=== PATIENT | female | born 1980 | race Caucasian/White ===

== ENCOUNTER 2016-07-31 21:21 | Emergency (ER) | payer SELFPAY ==
[~2016-07-31] VITALS: Ht 162.6 cm; Wt 138.8 kg
[2016-07-31 21:44] VITALS: BP 140/71
[2016-07-31 22:23] LABS: OBC FLU VALID
[2016-07-31] MEDS ORDERED: PRED20TA PO (22:38)
--- NOTE | 2016-07-31 22:38 | PHYS DOC ---
Past Medical History Past Medical History: Anxiety, Bipolar Past Surgical History: , Tonsillectomy, Tubal ligation Additional Past Surgical Histo: D&C Alcohol Use: Rarely Drug Use: None Adult General Chief Complaint Chief Complaint: FLU SYMPTOM HPI HPI Patient is a 35 year old female presents emergency department stating that she' s had a 3 day history of cough congestion and sinus pressure with fevers on and off. Patient states that she did not receive the flu a vaccination this year. She denies any nausea vomiting she denies the cough being productive. She states that she's been taken NyQuil and DayQuil [id number] relief. Review of Systems Review of Systems Constitutional: fever Eyes: Denies change in visual acuity, redness, or eye pain [] HENT: nasal congestion denies sore throat [] Respiratory: cough and shortness of breath [] Cardiovascular: No additional information not addressed in HPI [] GI: Denies abdominal pain, nausea, vomiting, bloody stools or diarrhea [] : Denies dysuria or hematuria [] Musculoskeletal: Denies back pain or joint pain [] Integument: Denies rash or skin lesions [] Neurologic: Denies headache, focal weakness or sensory changes [] Allergies Allergies Allergies Coded Allergies Type Severity Reaction Last Updated Verified Latex, Natural Rubber Allergy Severe "swelling, itching" 03/30/14 No Penicillins Allergy Severe "breathing problems" 03/30/14 No honey Allergy Severe "swelling, itching" 03/30/14 No Sulfa (Sulfonamide Antibiotics) Allergy Intermediate "itch real bad" 03/30/14 No Physical Exam Physical Exam Constitutional: Well developed, well nourished, no acute distress, non-toxic appearance. [] HENT: Normocephalic, atraumatic, bilateral external ears normal, oropharynx moist, no oral exudates, nose normal. Bilateral tympanic membranes appear to be normal. Throat with erythematous no exudate noted. No uvula deviation noted. No cervical adenopathy noted. Eyes: PERRLA, EOMI, conjunctiva normal, no discharge. [] Neck: Normal range of motion, no tenderness, supple, no stridor. [] Cardiovascular:Heart rate regular rhythm, no murmur [] Lungs & Thorax: Bilateral breath sounds clear to auscultation [] Skin: Warm, dry, no erythema, no rash. [] Back: No tenderness Extremities: No tenderness, no cyanosis, no clubbing, ROM intact, no edema. [] Neurologic: Alert and oriented X 3, normal motor function, normal sensory function, no focal deficits noted. [] Psychologic: Affect normal, judgement normal, mood normal. [] Current Patient Data Vital Signs Vital Signs Date Time Temp Pulse Resp B/P Pulse Ox O2 Delivery O2 Flow Rate FiO2 07/31/16 21:44 97.9 85 16 96 Room Air 97.9 Lab Values Laboratory Tests Test 07/31/16 21:55 Influenza Type A Antigen Negative (NEGATIVE) Influenza Type B Antigen Positive (NEGATIVE) EKG EKG [] Radiology/Procedures Radiology/Procedures [] Course & Med Decision Making Course & Med Decision Making Pertinent Labs and Imaging studies reviewed. (See chart for details) Influenza B+. Patient is out of the timeframe for Tamiflu as she's been having symptoms for over 3 days. Patient was encouraged to use Sudafed over-the- counter as well as Mucinex DM. Tylenol and ibuprofen for fever chills generalized body aches and discomfort. Also recommended plenty of fluids such as water or cranberry juice or propel. Patient will be discharged home in stable condition signs and symptoms to return back to emergency department as been provided. Patient will also be provided with steroids to help open up the airways and help her feel like she is breathing better. [] Dragon Disclaimer Dragon Disclaimer This electronic medical record was generated, in whole or in part, using a voice recognition dictation system. Departure Departure Impression: Primary Impression: Influenza B Disposition: 01 HOME, SELF-CARE Condition: STABLE Referrals: PONCHO RAWLS APRN (PCP) Patient Instructions: Influenza, Adult, [id number] Additional Instructions: Home to rest. Medications as prescribed. Sudafed [id number] instructed by purchasing specialist. Mucinex DM instructed by purchasing specialist. Drink plenty of fluids such as water, propel or Gatorade. Tylenol or ibuprofen for fever chills or generalized body aches and discomfort. Follow-up to primary care physician next 7-10 days. Return back to emergency department for signs and symptoms of become worse. Scripts Prednisone 20 Mg [id number] Mg PO DAILY #12 TAB Prov:SUSAN ROSENBAUM APRN 07/31/16 SUSAN ROSENBAUM APRN Jul 31, 2016 22:38
== END 2016-07-31 22:50 | disposition home or self-care (01) ==
LOC: ER 21:21
DX: J10.1 Influenza due to other identified influenza virus with other respiratory manifestations (principal); F31.9 Bipolar disorder, unspecified; F41.9 Anxiety disorder, unspecified; Z88.0 Allergy status to penicillin; Z91.040 Latex allergy status; Z88.2 Allergy status to sulfonamides; Z91.018 Allergy to other foods
CPT/HCPCS: 87804; 99284

== ENCOUNTER → 2017-05-14 | Outpatient (CLI) | payer OTHER ==
[2017-05-14 12:42] LABS: ADD MAN DIFF? NO
[2017-05-14 12:45] LABS: BASO # 0.1 x10^3/uL (0.0-0.2); BASO % 1 % (0-3); EOS # 0.3 x10^3/uL (0.0-0.7); EOS % 3 % (0-3); HEMOGLOBIN 12.7 g/dL (12.0-15.5); LYMPH # 3.4 x10^3/uL (1.0-4.8); LYMPH % 32 % (24-48); MEAN CORPUSCULAR HEMOGLOBIN 26 pg (25-35); MEAN CORPUSCULAR HGB CONC 33 g/dL (31-37); MEAN CORPUSCULAR VOLUME 81 fL (79-100); MONO # 0.7 x10^3/uL (0.0-1.1); MONO % 6 % (0-9); NEUT # 6.3 x10^3uL (1.8-7.7); NEUT % 58 % (31-73); PLATELET COUNT 398 x10^3/uL (140-400); RED BLOOD COUNT 4.82 x10^6/uL (3.50-5.40); RED CELL DISTRIBUTION WIDTH 15.1 % (11.5-14.5); WHITE BLOOD COUNT 10.8 x10^3/uL (4.0-11.0)
[2017-05-14 12:59] LABS: ALBUMIN 3.9 g/dL (3.4-5.0); ALBUMIN/GLOBULIN RATIO 0.9 (1.0-1.7); ALK PHOS 66 U/L (46-116); ALT (SGPT) 23 U/L (14-59); ANION GAP 12 (6-14); AST (SGOT) 16 U/L (15-37); BLOOD UREA NITROGEN 15 mg/dL (7-20); BUN/CREATININE RATIO 25 (6-20); CALCIUM 8.8 mg/dL (8.5-10.1); CARBON DIOXIDE 23 mmol/L (21-32); CHLORIDE 102 mmol/L (98-107); CREATININE 0.6 mg/dL (0.6-1.0); GFR 111.9; GLUCOSE 97 mg/dL (70-99); POTASSIUM 3.9 mmol/L (3.5-5.1); SODIUM 137 mmol/L (136-145); TOTAL BILIRUBIN 0.2 mg/dL (0.2-1.0); TOTAL PROTEIN 8.2 g/dL (6.4-8.2)
== END | disposition home or self-care (01) ==
LOC: SURGPAT 12:13
DX: Z01.818 Encounter for other preprocedural examination (principal); Z90.710 Acquired absence of both cervix and uterus
CPT/HCPCS: 36415; 71046; 80053; 85025

== ENCOUNTER 2017-05-26 05:39 | Inpatient (IN) | payer OTHER ==
[2017-05-26] MEDS: IV RINGERS,LACTATED 1000ML 1,000 ML IV (06:40)
[2017-05-26] MEDS ORDERED: MORPHINE SULFATE 2 MG/ML DISP.SYRIN. IV (07:00)
[2017-05-26] MEDS ORDERED: fentaNYL PF VIAL 100 MCG/2 ML VIAL IV (07:00)
[2017-05-26] MEDS ORDERED: ONDANSETRON PF 4 MG/2 ML VIAL. IV ×2 (07:00→10:00)
[2017-05-26] MEDS ORDERED: HYDROmorphone 2 MG/ML VIAL IV (07:00)
[2017-05-26] MEDS ORDERED: LIDOCAINE 1% PF 2 ML VIAL. ID (07:00)
[2017-05-26] MEDS ORDERED: BUPIVACAINE-EPI 0.25%-1:200000 50 ML VIAL. (07:02)
[2017-05-26 07:14] LABS: NEG OBC UR NEG; POS OBC UR POS; U PREG PATIENT NEGATIVE (NEG)
[2017-05-26] MEDS ORDERED: LIDOCAINE 1% PF 5 ML VIAL. (07:18)
[2017-05-26] MEDS ORDERED: PROPOFOL 20 ML IV (07:19)
[2017-05-26] MEDS ORDERED: MIDAZOLAM HCL/PF 2 MG/2 ML VIAL. (07:19)
[2017-05-26] MEDS ORDERED: DEXAMETHASONE SOD PHOS 20 MG/5 ML VIAL. ×2 (07:19→07:20)
[2017-05-26] MEDS ORDERED: ROCURONIUM 100 MG/10 ML VIAL. (07:19)
[2017-05-26] MEDS ORDERED: fentaNYL PF VIAL 250 MCG/5 ML VIAL (07:19)
[2017-05-26] MEDS: CLINDAMYCIN 900MG PREMIX 50 ML IV (07:49)
[2017-05-26] MEDS ORDERED: SEVOFLURANE 61 TO 120 MINUTES. IH (09:05)
[2017-05-26] MEDS ORDERED: GLYCOPYRROLATE 1 MG/5 ML VIAL. (09:06)
[2017-05-26] MEDS ORDERED: NEOSTIGMINE METHYLSULFATE 5 MG/5 ML SYRINGE. (09:06)
[2017-05-26] MEDS ORDERED: MORPHINE SULFATE 10 MG/ML VIAL. (09:52)
[2017-05-26] MEDS ORDERED: HYDROcodone/APAP 5/325MG 1 TAB TABLET PO (10:00)
[2017-05-26] MEDS ORDERED: 0.9 % SODIUM CHLORIDE 10 ML DISP.SYRIN. IV (10:00)
[2017-05-26] MEDS ORDERED: NALOXONE 0.4 MG/ML VIAL. IV (10:00)
[2017-05-26] MEDS ORDERED: MAG HYDROX/ALUMINUM HYD/SIMETH 30 ML ORAL.SUSP PO (10:00)
[2017-05-26] MEDS ORDERED: oxyCODONE/APAP 5/325 1 TAB TABLET PO (10:00)
[2017-05-26] MEDS ORDERED: LACTULOSE 20 GM/30 ML SOLUTION. PO (10:00)
[2017-05-26] MEDS ORDERED: ZOLPIDEM 5 MG TABLET. PO (10:00)
[2017-05-26] MEDS ORDERED: diphenhydrAMINE 50 MG/ML VIAL IV (10:00)
[2017-05-26] MEDS ORDERED: diphenhydrAMINE HCL 25 MG CAPSULE PO (10:00)
[2017-05-26] MEDS: fentaNYL PF VIAL 100 MCG/2 ML VIAL IV ×2 (10:34→11:04)
[2017-05-26] MEDS: PROCHLORPERAZINE 10 MG/2 ML VIAL. IV (10:35)
[2017-05-26] MEDS: KETOROLAC 30 MG/ML INJ. IV ×2 (12:55→19:28)
[2017-05-26] MEDS: MORPHINE SULFATE 2 MG/ML DISP.SYRIN. IV ×2 (16:33→18:04)
[2017-05-26] MEDS: CALCIUM CARBONATE 500 MG TAB.CHEW PO (18:05)
[2017-05-26] MEDS: HYDROcodone/APAP 5/325MG 1 TAB TABLET PO (23:13)
[2017-05-27] MEDS: KETOROLAC 30 MG/ML INJ. IV (01:44)
[2017-05-27 05:01] LABS: HEMATOCRIT 33.9 % (36.0-47.0)
[2017-05-27] MEDS: oxyCODONE/APAP 5/325 1 TAB TABLET PO ×3 (05:55→15:29)
[2017-05-27 07:17] LABS: ANION GAP 9 (6-14); BLOOD UREA NITROGEN 9 mg/dL (7-20); CALCIUM 8.3 mg/dL (8.5-10.1); CARBON DIOXIDE 25 mmol/L (21-32); CHLORIDE 103 mmol/L (98-107); CREATININE 0.6 mg/dL (0.6-1.0); GFR 111.9; GLUCOSE 125 mg/dL (70-99); POTASSIUM 4.4 mmol/L (3.5-5.1); SODIUM 137 mmol/L (136-145)
[2017-05-27] MEDS: SIMETHICONE 80 MG TAB.CHEW PO (15:28)
[2017-05-27] MEDS: MAGNESIUM HYDROXIDE 2,400 MG/30 ML ORAL.SUSP. PO (15:28)
[2017-05-27] MEDS: HYDROcodone/APAP 5/325MG 1 TAB TABLET PO (19:44)
[2017-05-27] MEDS ORDERED: BISACODYL 10 MG SUPP.RECT. PR (19:45)
[2017-05-27] MEDS: SENNOSIDES/DOCUSATE 8.6/50MG TABLET. PO (19:45)
[2017-05-27] MEDS: IBUPROFEN 600 MG TABLET. PO (22:03)
[2017-05-28] MEDS: IBUPROFEN 600 MG TABLET. PO ×2 (03:42→11:15)
[2017-05-28] MEDS: SENNOSIDES/DOCUSATE 8.6/50MG TABLET. PO (07:53)
[2017-05-28] MEDS: HYDROcodone/APAP 5/325MG 1 TAB TABLET PO (07:53)
== END 2017-05-28 14:00 | disposition home or self-care (01) | DRG 743 ==
LOC: OPSVCIP 05:39 → 3 NORTH 10:05
PROC: 0UT20ZZ Resection of Bilateral Ovaries, Open Approach (ICD-10-PCS; principal; 2017-05-26 07:30)
PROC: 0UT70ZZ Resection of Bilateral Fallopian Tubes, Open Approach (ICD-10-PCS; 2017-05-26 07:30)
PROC: 0UT90ZZ Resection of Uterus, Open Approach (ICD-10-PCS; 2017-05-26 07:30)
DX: D25.9 Leiomyoma of uterus, unspecified (principal); F17.210 Nicotine dependence, cigarettes, uncomplicated; F31.9 Bipolar disorder, unspecified; N92.0 Excessive and frequent menstruation with regular cycle; Z98.51 Tubal ligation status; Z88.0 Allergy status to penicillin; Z88.2 Allergy status to sulfonamides; Z88.8 Allergy status to other drugs, medicaments and biological substances; Z91.040 Latex allergy status; Z83.3 Family history of diabetes mellitus; Z82.49 Family history of ischemic heart disease and other diseases of the circulatory system; Z80.9 Family history of malignant neoplasm, unspecified
CPT/HCPCS: 36415; 80048; 81025; 85014; 86850; 86900; 86901; 88307; G0378; G0379; J0780; J1100; J1885; J1956; J2250; J2270; J2704; J2710; J3010; J3490; J7120

== ENCOUNTER 2017-06-10 22:41 | Emergency (ER) | payer OTHER | END 2017-06-10 23:35 | disposition home or self-care (01) | LOC: ER 22:41 | DX: T81.31XA Disruption of external operation (surgical) wound, not elsewhere classified, initial encounter (principal); Z90.710 Acquired absence of both cervix and uterus; Z98.51 Tubal ligation status; F17.200 Nicotine dependence, unspecified, uncomplicated; Z88.0 Allergy status to penicillin; Z88.2 Allergy status to sulfonamides; Z91.018 Allergy to other foods | CPT/HCPCS: 99281 ==

== ENCOUNTER 2017-07-09 | Emergency (ER) | payer OTHER | END 2017-07-09 00:45 | disposition home or self-care (01) | LOC: ER | DX: N99.842 Postprocedural seroma of a genitourinary system organ or structure following a genitourinary system procedure (principal); Z90.710 Acquired absence of both cervix and uterus; Z91.040 Latex allergy status; Z88.2 Allergy status to sulfonamides; Z91.048 Other nonmedicinal substance allergy status; Z88.0 Allergy status to penicillin | CPT/HCPCS: 99281 ==

== ENCOUNTER → 2017-07-22 | Outpatient (CLI) | payer OTHER | END | disposition home or self-care (01) | LOC: KCIC US 10:07 | DX: T81.89XD Other complications of procedures, not elsewhere classified, subsequent encounter (principal); R60.0 Localized edema | CPT/HCPCS: 76857 ==

== ENCOUNTER 2017-10-30 18:32 | Emergency (ER) | payer OTHER ==
[2017-10-30 19:54] LABS: ANION GAP 10 (6-14); BLOOD UREA NITROGEN 10 mg/dL (7-20); CARBON DIOXIDE 26 mmol/L (21-32); CHLORIDE 104 mmol/L (98-107); CREATININE 0.7 mg/dL (0.6-1.0); GFR 93.6; GLUCOSE 141 mg/dL (70-99); POTASSIUM 4.1 mmol/L (3.5-5.1); SODIUM 140 mmol/L (136-145)
[2017-10-30 20:03] LABS: TROPONINI < 0.017 ng/mL (0.000-0.055)
== END 2017-10-30 20:45 | disposition home or self-care (01) ==
LOC: ER 18:32
DX: R07.2 Precordial pain (principal); R06.02 Shortness of breath; F31.9 Bipolar disorder, unspecified; F41.9 Anxiety disorder, unspecified; Z88.0 Allergy status to penicillin; Z88.2 Allergy status to sulfonamides; Z91.040 Latex allergy status; Z91.018 Allergy to other foods
CPT/HCPCS: 36415; 71046; 80048; 84484; 93005; 99285-25

== ENCOUNTER → 2018-12-20 | Outpatient (CLI) | payer OTHER ==
[2017-10-30 20:44] VITALS: BP 129/76
[~2018-12-20] MED LIST: ACET325T9 PO; HYDR-2765 PO; IBUP-1007 PO; PRED20TA PO; RANI150C PO
--- NOTE | 2018-12-20 11:44 | KCIC ---
Indication: Sprain of left wrist. TECHNIQUE: 3 views of the left wrist and 3 views of the left hand COMPARISON: None FINDINGS: Wrist: No acute fracture or dislocation. Hand: No acute fracture or dislocation. IMPRESSION: As above. Electronically signed by: Juan Antonio Vallecillo DO (12/20/2018 11:41 AM) [facility]
--- NOTE | 2018-12-20 11:44 | KCIC ---
Indication: Sprain of left wrist. TECHNIQUE: 3 views of the left wrist and 3 views of the left hand COMPARISON: None FINDINGS: Wrist: No acute fracture or dislocation. Hand: No acute fracture or dislocation. IMPRESSION: As above. Electronically signed by: Juan Antonio Vallecillo DO (12/20/2018 11:41 AM) [facility]
== END | disposition home or self-care (01) ==
LOC: KCIC 09:40
PROVIDERS: ATTEND Family Medicine
DX: S63.502D Unspecified sprain of left wrist, subsequent encounter (principal); X58.XXXD Exposure to other specified factors, subsequent encounter
CPT/HCPCS: 73110; 73130

== ENCOUNTER → 2018-12-22 | Outpatient (CLI) | payer OTHER ==
[2017-10-30 20:44] VITALS: BP 129/76
--- NOTE | 2018-12-22 14:33 | KCIC ---
STUDY: MRI of the left wrist without contrast INDICATION: Left wrist pain after a fall. COMPARISON: Left wrist radiographs 12/20/2018 TECHNIQUE: Multiplanar MR imaging of the left wrist performed without the use of intravenous or intra-articular contrast. FINDINGS: Bones/cartilage: No acute fracture or findings of marrow contusion. No advanced degenerative changes. No focal chondral defect. Ligaments: The scapholunate and lunotriquetral ligaments are intact. No findings of complete or high-grade disruption of the additional intrinsic or extrinsic wrist ligaments though there appears to be some mild sprain of the dorsal extrinsic ligaments at the level of the mid carpal articulation, image 7 series 7. Musculotendinous: The flexor tendons are unremarkable without tenosynovitis. The extensor tendons are intact and without tenosynovitis. Mild subluxation of the extensor carpi ulnaris tendon along the distal ulnar groove with the tendon seen to course along the ulnar styloid on image 22 series 4. No findings to suggest acute injury of the ECU subsheath. No abnormal muscular signal or atrophy. TFCC: Intact. Miscellaneous: Very small ganglion cyst formation adjacent to the radial styloid at the volar wrist in the region of the radioscaphocapitate ligament origin, image 64 series 8. The median nerve is prominent in size and mildly increased in signal most notable at the proximal aspect of the carpal tunnel, image 15 series 4. The ulnar nerve is unremarkable within Guyon's canal. IMPRESSION: 1. No acute internal derangement of the right wrist. No acute fracture or marrow contusion. There are findings of mild sprain of the dorsal extrinsic ligaments at the level of the mid carpal joint. The scapholunate and lunotriquetral ligaments are intact. 2. Some prominence of the median nerve most notable at the proximal aspect of the carpal tunnel. Recommend clinical correlation for symptoms of carpal tunnel syndrome. Electronically signed by: HENRY MCKEON MD (12/22/2018 2:30 PM) [id number]
== END | disposition home or self-care (01) ==
LOC: KCIC MRI 12:07
PROVIDERS: ATTEND Family Medicine
DX: S63.512D Sprain of carpal joint of left wrist, subsequent encounter (principal); S63.01 Subluxation and dislocation of distal radioulnar joint; M67.432 Ganglion, left wrist; F40.240 Claustrophobia; X58.XXXD Exposure to other specified factors, subsequent encounter
CPT/HCPCS: 73221

== ENCOUNTER → 2020-04-09 | Outpatient (CLI) | payer OTHER ==
[2017-10-30 20:44] VITALS: BP 129/76
--- NOTE | 2020-04-09 18:52 | KCIC ---
BILATERAL SCREENING MAMMOGRAM, 3-D History: Routine screening. Comparison: None. This is a baseline examination. Technique: MLO and CC digital tomosynthesis (3D) images obtained. Radiologist reviewed these images on dedicated workstation. Findings: Breast Tissue Density A : The breasts are almost entirely fatty. There is mild bilateral glandular nodularity which is partially due to a few intramammary lymph nodes. There are no dominant masses, suspicious microcalcifications or architectural distortion. IMPRESSION: No mammographic evidence of malignancy. Recommend routine screening. BI-RADS category 2: Benign findings. The images were reviewed with computer-aided detection. Patient information is entered into reminder system with a target due date for the next screening mammogram. Mammography is the most sensitive method for finding small breast cancers, but it does not detect them all and is not a substitute for careful clinical examination. A negative mammogram does not negate a clinically suspicious finding and should not result in delay in biopsying a clinically suspicious abnormality. "Our facility is accredited by the [employer] Mammography Program." Electronically signed by: Julien Montgomery MD (04/09/2020 6:49 PM) [id number]
== END ==
LOC: KCIC MAMMO 07:50
PROVIDERS: ATTEND Family Medicine
DX: Z12.31 Encounter for screening mammogram for malignant neoplasm of breast (principal)
CPT/HCPCS: 77063; 77067

== ENCOUNTER 2021-05-04 09:05 | Emergency (ER) | payer OTHER ==
[2017-10-30 20:44] VITALS: BP 129/76
== END 2021-05-04 10:00 | disposition left against medical advice (07) ==
LOC: ER 09:05
DX: R07.81 Pleurodynia (principal); Z53.21 Procedure and treatment not carried out due to patient leaving prior to being seen by health care provider